=== PATIENT | female | born 1955 | race Caucasian/White ===

== ENCOUNTER 2019-09-06 09:24 | Emergency (ER) | payer OTHER ==
[~2019-09-06] VITALS: Ht 167.6 cm; Wt 99.8 kg
--- NOTE | 2019-09-06 09:24 | NUR ---
BROUGHT IN BY DAUGHTER IN WHEELCHAIR, PLACED IN BED #8 AND TRIAGED. REPORT GIVEN TO [employer]DERJIT
[2019-09-06 09:25] VITALS: BP_SYST 141
--- NOTE | 2019-09-06 09:30 | NUR ---
Patient presented to ER C/O abdominal pain, nausea & vomiting. Patient A&Ox4, ambulatory, BIB daughter, skin pale & warm, diaphoretic, nausea present, pain 10/10, N/V present. Patient states she has N/V & abdomional pain x5 days, ate egg salad [facility] Monday when N/V started.
--- NOTE | 2019-09-06 09:35 | NUR ---
ER Dr. Segal at bedside examining patient.
[2019-09-06] MEDS ORDERED: ONDANSETRON HCL 4 MG/2 ML VIAL IVP ONE (09:45)
[2019-09-06] MEDS ORDERED: NACL 0.9% 1,000 ML IV ONE (09:45)
[2019-09-06] MEDS ORDERED: KETOROLAC TROMETHAMINE 30 MG VIAL IVP ONE (09:45)
[2019-09-06 10:04] LABS: BILIRUBIN,URINE NEGATIVE (NEGATIVE); BLOOD, URINE 2+ (NEGATIVE); CLARITY/URINE SL CLOUDY (CLEAR); COLOR,URINE YELLOW (YELLOW); GLUCOSE,URINE NEGATIVE (NEGATIVE); KETONES,URINE 2+ (NEGATIVE); LEUKOCYTE ESTERASE ,URINE 1+ (NEGATIVE); NITRITE, URINE NEGATIVE (NEGATIVE); PH,URINE 7.5 (5.0-8.0); PROTEIN URINE 1+ (NEGATIVE); UROBILINOGEN,URINE 0.2 (0.2-1.0)
[2019-09-06 10:10] LABS: BACTERIA,URINE FEW /HPF (None Seen); MUCUS,URINE 1+ /LPF (None Seen)
[2019-09-06 10:23] LABS: BASOPHILS % (AUTO) 0.7 % (0.0-2.0); EOSINOPHILS # (AUTO) 0.1 K/uL (0.0-0.4); EOSINOPHILS % (AUTO) 1.1 % (0.0-4.0); HEMATOCRIT 39.6 % (36-48); HEMOGLOBIN 13.4 g/dL (12.0-16.0); LYMPHOCYTES # (AUTO) 1.2 K/uL (1.0-5.5); LYMPHOCYTES % (AUTO) 20.9 % (20.5-51.5); MEAN CORPUSCULAR HEMOGLOBIN 28 pg (27-31); MEAN CORPUSCULAR HGB CONC 34 % (32-36); MEAN CORPUSCULAR VOLUME 84 fL (79.0-98.0); MONOCYTES # (AUTO) 0.4 K/uL (0.0-1.0); MONOCYTES % (AUTO) 7.7 % (1.7-9.3); NEUTROPHILS # (AUTO) 3.9 K/uL (1.8-7.7); NEUTROPHILS % (AUTO) 69.6 % (40.0-70.0); PLATELET COUNT (AUTO) 220 K/uL (130-430); RED BLOOD CELL COUNT(AUTO) 4.73 MIL/uL (4.2-6.2); RED CELL DISTRIBUTION WIDTH 14.4 % (9.0-15.0); WHITE BLOOD COUNT (AUTO) 5.5 K/uL (4.8-10.8)
[2019-09-06 10:44] LABS: CALCIUM 8.8 mg/dL (8.4-11.0); CREATININE 0.86 mg/dL (0.55-1.30)
[2019-09-06 10:48] LABS: ALBUMIN 3.7 g/dL (3.4-4.8); TOTAL BILIRUBIN 0.5 mg/dL (0.0-1.0)
[2019-09-06 10:50] LABS: POTASSIUM 3.1 mmol/L (3.5-5.1)
[2019-09-06] MEDS ORDERED: MORPHINE 4 MG/ML INJ. SYRINGE IVP ONE (11:00)
--- NOTE | 2019-09-06 11:00 | NUR ---
ER at bedside discussing pain with patient.
--- NOTE | 2019-09-06 11:02 | NUR ---
Patient medicated per MD order, pain 10/10 per patient
[2019-09-06] MEDS ORDERED: KCL 20 mEq in D5NS 1000 mL 1,000 ML IV ONE (11:15)
[2019-09-06] MEDS ORDERED: PROMETHAZINE INJ.Non-Formulary 25 MG/ML AMP IVP ONE (11:15)
[2019-09-06] MEDS ORDERED: PROCHLORPERAZINE EDISYLATE 10 MG/2 ML VIAL IVP ONE (11:45)
[2019-09-06] MEDS ORDERED: DIPHENHYDRAMINE INJ 50 MG/ML VIAL IVP ONE (11:45)
[2019-09-06] MEDS ORDERED: DIPHENHYDRAMINE INJ 50 MG/ML VIAL ONE (12:01)
--- NOTE | 2019-09-06 14:25 | NUR ---
Patient expressed concern for not tolerating PO ABX after discharge, offered patient "PO challenge" to assess tolerating PO lioquids prior to discharge, Made Dr. Segal aware.
[2019-09-06 15:02] VITALS: BP_SYST 138
--- NOTE | 2019-09-06 15:04 | NUR ---
Patient given written and verbal discharge instructions and verbalizes understanding. ER MD discussed with patient the results and treatment provided. Patient in stable condition. ID arm band removed. IV catheter removed intact and dressing applied, no active bleeding. Rx of given. Patient educated on pain management and to follow up with PMD. Pain Scale 7/10 tolerale for pt. Opportunity for questions provided and answered. Medication side effect fact sheet provided.
== END 2019-09-06 15:04 | disposition home or self-care (01) ==
LOC: SED 09:24
DX: N39.0 Urinary tract infection, site not specified (principal); R11.2 Nausea with vomiting, unspecified; E11.9 Type 2 diabetes mellitus without complications; K21.9 Gastro-esophageal reflux disease without esophagitis; I10 Essential (primary) hypertension; Z88.0 Allergy status to penicillin
CPT/HCPCS: 36415; 74176; 80053; 81000; 83036; 83690; 85025; 87086; 96361; 96374; 96375; 99284; J0780; J1200; J1885; J2270; J2405; J7030; J2550